=== PATIENT | male | born 1960 | race Caucasian/White ===

== ENCOUNTER 2016-06-22 17:10 | Emergency (ER) | payer MEDICAID ==
[~2016-06-22] VITALS: Ht 177.8 cm; Wt 75.5 kg
[2016-06-22 17:41] VITALS: Ht 177.8 cm; Wt 75.5 kg
[2016-06-22] MEDS ORDERED: METHYLPREDNISOLONE 125 MG INJ IM ONE (18:30)
[2016-06-22] MEDS ORDERED: DIPHENHYDRAMINE 25 MG CAP PO ONE (18:30)
[2016-06-22] MEDS ORDERED: PRED20TA PO (18:33)
[2016-06-22] MEDS ORDERED: BEN50 PO (18:33)
[2016-06-22 19:13] VITALS: BP 127/71; PULSE 65; RESP 19; TEMP 97
--- NOTE | 2016-06-23 17:48 | ERD ---
ER Documentation Chief Complaint Date/Time DATE: 06/23/16 TIME: 17:45 Chief Complaint GEN RASH TO BODY, STATES HE WAS IN THE [place] 2 DAYS AGO. HPI This is a 56-year-old homeless male that presents to the emergency department after he indicates he was walking on a trail in [facility] 48 hours prior to arrival wearing shorts. He indicates that shortly after he noticed multiple insect bites and since that time has been experiencing diffuse pruritus localized to the insect bites. He states had no fevers or shaking or chills. He denies any difficulty breathing and no swelling of his lips or tongue. Indicates given that he is homeless he does not have ability to obtain antihistamines presents to the emergency department to be further evaluated. He denies any spreading of the rash as it is localized to the insect bites on his bilateral lower extremities. ROS All systems reviewed and are negative except as per history of present illness. Medications Home Meds Active Scripts Diphenhydramine Hcl* (Benadryl*) 50 Mg Cap, 50 MG PO Q6H Y for ITCHING/RASH, # 30 CAP Prov:ALTA HERRERA 06/22/16 Prednisone* (Prednisone*) 20 Mg Tab, 60 MG PO DAILY for 5 Days, TAB Prov:ALTA HERRERA 06/22/16 Allergies Allergies: Coded Allergies: No Known Allergy (Unverified , 06/22/16) PMhx/Soc History of Surgery: Yes (left ankle sx 1995) Anesthesia Reaction: No Hx Neurological Disorder: No Hx Respiratory Disorders: No Hx Cardiac Disorders: No Hx Psychiatric Problems: Yes (bipolar) Hx Miscellaneous Medical Probl: No Hx Alcohol Use: No Hx Substance Use: Yes (marijauna) Hx Tobacco Use: No Physical Exam Vitals Vital Signs Date Time Temp Pulse Resp B/P Pulse Ox O2 Delivery O2 Flow Rate FiO2 06/22/16 19:13 97.0 65 19 127/71 99 Room Air 06/22/16 17:41 97.0 93 19 120/72 97 Physical Exam Constitutional:Well-developed. Well-nourished. HEENT:Normocephalic. Atraumatic.Pupils were equal round reactive to light. Moist mucous membranes.No tonsillar exudates. No angioedema. No macroglossia Neck: No nuchal rigidity. No lymphadenopathy. No posterior cervical spine tenderness or step-offs. Respiratory: Not using accessory muscles of respiration.Lungs were clear to auscultation bilaterally. No rhonchi. No rales. No wheezing. Cardiovascular: Regular rate regular rhythm.No murmurs. No rubs were appreciated.S1, S2 normal. Distal pulses are palpable 2+ bilaterally. GI: Abdomen was soft. Nontender. Non Distended. No pulsatile abdominal masses or bruits. No rebound. No guarding. Bowel sounds were present and normal. Muscle skeletal: Full range of motion of both the upper and lower extremities bilaterally.Normal muscle tone.No assymetrical calf tenderness or swelling. Skin: No petechia, no purpura. No lesions on the palms or the soles of the feet. No maculopapular rash. Diffuse well-circumscribed areas of erythremia with central area of inoculation site over the bilateral lower extremities with no surrounding tenderness fluctuance or induration. No urticaria. No rash involving the face abdomen or back NEURO: Patient was alert, awake, orientated x3.No facial droop. Gait observed and normal with no ataxia.Speech had regular rate and rhythm. No focal neurological deficits. Results 24 hrs Current Medications Medications (Trade) Dose Ordered Sig/Bubba Route PRN Reason Start Time Stop Time Status Last Admin Dose Admin Methylprednisolone Sodium Succinate (Solu-Medrol) 125 mg ONCE ONCE IM 06/22/16 18:30 06/22/16 18:31 DC 06/22/16 18:47 Diphenhydramine HCl (Benadryl) 25 mg ONCE ONCE PO 06/22/16 18:30 06/22/16 18:31 DC 06/22/16 18:47 Procedures/MDM This patient presented to the emergency department physical exam findings consistent of pruritus likely secondary to insect bites. The patient did not have any physical exam findings to suggest angioedema, urticaria, toxic shock syndrome, Wang-Ras syndrome or poison skye. There is no evidence of overlying cellulitis. The patient received IM Solu-Medrol and was given Benadryl in the emergency department. The patient did state he is a friend that would be able to help him fill antihistamine prescriptions therefore he was given a prescription of both Benadryl and low-dose steroids for the next 5 days. The patient was discharged home in fair condition. They were instructed to return to the emergency department at any time if there was any worsening of their condition. The patient stated they would follow up with their PCP in the next 24-48 hours to initiate a suitable medication regimen under the care of their PCP as well as to allow their PCP to monitor any drug reactions. The patient was discharged home with prescriptions after they gave informed consent to the new medication. They were also fully informed by myself on the adverse effects and adverse drug interactions in order to provide adequate safeguards to prevent possible adverse reactions to medications. Departure Diagnosis: Primary Impression: Local reaction to insect sting Encounter type: initial encounter Injury intent: accidental or unintentional Qualified Code: T63.481A - Local reaction to insect sting, accidental or unintentional, initial encounter Condition: Fair Patient Instructions: Allergic Reaction, Insect (General) ALTA HERRERA Jun 23, 2016 17:48
== END 2016-06-22 19:13 | disposition home or self-care (01) ==
LOC: FTE 17:10
DX: T63.481A Toxic effect of venom of other arthropod, accidental (unintentional), initial encounter (principal)
CPT/HCPCS: J2930; Z7610; 96372

== ENCOUNTER 2016-11-09 20:19 | Emergency (ER) | payer MEDICAID ==
[~2016-11-09] VITALS: Ht 175.3 cm; Wt 75.0 kg
[~2016-11-09 20:19] MED LIST: BEN50 PO; PRED20TA PO
[2016-11-09 20:56] VITALS: Ht 175.3 cm; Wt 75.0 kg
[2016-11-09] MEDS ORDERED: morphine 4 MG/ML VIAL IV STA (22:06)
[2016-11-09] MEDS ORDERED: ONDANSETRON 4 MG INJ IV STA (22:06)
[2016-11-09] MEDS ORDERED: SOD CHLORIDE 0.9% 1,000 ML IV STA (22:06)
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
[2016-11-09 22:49] LABS: ALBUMIN 4.1 g/dl (3.3-4.9); ALBUMIN/GLOBULIN RATIO 1.32; BILIRUBIN,INDIRECT 0.9 mg/dl (0-1.1); BILIRUBIN,TOTAL 0.9 mg/dl (0.2-1.3); CALCIUM 9.3 mg/dl (8.4-10.2); CREATININE 1.09 mg/dl (0.61-1.24); POTASSIUM 4.1 mmol/L (3.5-5.1); TOTAL PROTEIN 7.2 g/dl (6.1-8.1)
--- NOTE | 2016-11-09 23:21 | RADRPT ---
PROCEDURE: US Scrotum. CLINICAL INDICATION: Scrotal injury. TECHNIQUE: Multiple sonographic images of the scrotal region were obtained utilizing a linear arra y transducer with grayscale and color-flow and a Doppler imaging. The images were reviewed on a high -resolution PACS workstation. COMPARISON: No prior studies are available for comparison. FINDINGS: Right hemiscrotum: Testis: Normal in size, morphology and without mass. There is normal blood flow. Testicular size is estimated at 4.1 x 2.5 x 1.9 centimeters. Epididymis: No abnormalities are identified, normal size and blood flow is demonstrated. Hydrocele: None identified. Varicocele: None identified. Scrotal skin: Not thickened. Left hemiscrotum: Testis: Normal in size, morphology and without mass. There is normal blood flow. Testicular size i s estimated at 4 x 2.4 x 1.7 centimeters. Epididymis: Incidental tiny 2 mm cyst. Normal blood flow. Hydrocele: None identified. Varicocele: None identified. Scrotal skin: Not thickened. RPTAT:HJJR IMPRESSION: Incidental tiny left epididymal cyst, otherwise unremarkable scrotal ultrasound. Physician Wale Date Time Electronically viewed and signed by Physician Wale on 11/09/2016 23:21 /
[2016-11-09] MEDS ORDERED: SOD CHLORIDE 0.9% 100 ML ONE (23:52)
[2016-11-09] MEDS ORDERED: IOHEXOL 300MG/ML 150 ML BTL ONE (23:52)
--- NOTE | 2016-11-10 00:35 | RADRPT ---
PROCEDURE: CT abdomen and pelvis with contrast. CLINICAL INDICATION: Abdominal pain. TECHNIQUE: CT scan of the abdomen and pelvis with contrast was performed. Coronal and sagittal im ages were also reformatted. 100 cc Omnipaque-300 intravenous contrast was administered without comp lication. One or more of the following dose reduction techniques were used: Automated exposure contr ol, adjustment of the mA and/or kV according to patient size, use of iterative reconstruction techni que. Total exam CTDIvol = 8.65 mGy and DLP = 517.80 mGy-cm. COMPARISON: None. FINDINGS: Visualized lower thorax: Linear scarring in the lateral segment right middle lobe is present with mi ld bibasilar subsegmental atelectasis. There is no evidence for pleural effusion. Liver, gallbladder, pancreas and spleen: Normal hepatic contour, attenuation in size. In the cente r of the right hepatic lobe is a peripherally lobulated centrally hypodense lesion and has some area s of peripheral enhancement the finding measuring 2.1 x 1.5 cm in width attenuation centrally of 50 HU, findings possibly an hemangioma (series 3 image 39). A second to similar lesion in the inferior right hepatic lobe is approximately 1.6 x 1.2 cm (series 3 image 50). There is no evidence of duct al dilatation. The gallbladder is unremarkable. No common bile duct dilatation is evident. The pa ncreas is normal. The spleen is normal, not enlarged. Adrenal glands and genitourinary system: The adrenal glands are normal bilaterally. The kidneys ar e normal in size, contour and attenuation with no evidence for masses, calculi or hydronephrosis. Sy mmetric enhancement of the kidneys is present without evidence of pyelonephritis . The ureters are unremarkable. The urinary bladder shows no abnormality. The prostate gland is normal in size. The scrotum shows no evidence of abnormality. Gastrointestinal system: The stomach, small bowel and large intestine are normal in caliber. There is no evidence of obstruction, ileus or inflammation. There is no evidence of appendicitis. A mode rate amount of fecal debris is present within the colon raising concern for constipation. Peritoneum, retroperitoneum, vessels and lymph nodes: The abdominal aorta is normal in caliber. Th ere is trace aortic atherosclerotic calcification. Inferior vena cava is normal in caliber. There is no evidence for adenopathy. The peritoneal cavity is normal with no evidence for ascites. No pne umoperitoneum is present Osseous structures and musculoskeletal system: There is no evidence for acute osseous abnormality o r muscular pathology. Moderate to severe multilevel spondylosis, facet arthropathy and vacuum disk phenomenon throughout the lumbar spine is present. Edematous changes in the subcutaneous fat of the right inguinal region are nonspecific, possibly post traumatic or inflammatory. There is no eviden ce of inguinal hernia or hematoma. RPTAT:HJJR IMPRESSION: 1. Nonspecific edematous change in the right inguinal region possibly post traumatic or inflammator y, cellulitis cannot be excluded in the proper clinical setting. No evidence of abscess or hematoma . 2. Hypodensities within the right hepatic lobe probably reflect incidental hemangiomata but follow- up evaluation is recommended based upon the attenuation and sizes measuring over 1 cm. Consider a n on emergent follow-up outpatient three-phase liver CT examination. 3. Constipation pattern. 4. Extensive vacuum disk phenomenon and degenerative changes of the thoracolumbar spine. 5. Minimal atherosclerotic calcification of the abdominal aorta. Physician Wale Date Time Electronically viewed and signed by Physician Wale on 11/10/2016 00:35 /
[2016-11-10 00:51] LABS: ADD UMIC NO; UR ASCORBIC ACID NEGATIVE (NEGATIVE); UR BILIRUBIN (Dip) NEGATIVE (NEGATIVE); UR BLOOD (Dip) NEGATIVE (NEGATIVE); UR CLARITY CLEAR (CLEAR); UR COLOR YELLOW (YELLOW); UR GLUCOSE (Dip) NEGATIVE (NEGATIVE); UR KETONES (Dip) TRACE mg/dL (NEGATIVE); UR LEUKOCYTE ESTERASE (Dip) NEGATIVE Leu/ul (NEGATIVE); UR NITRITE (Dip) NEGATIVE (NEGATIVE); UR SPECIFIC GRAVITY (Dip) 1.028 (1.003-1.030); UR TOTAL PROTEIN (Dip) NEGATIVE (NEGATIVE); UR UROBILINOGEN (Dip) 1+ mg/dL (NEGATIVE)
[2016-11-10] MEDS ORDERED: HYDR-906 PO (01:08)
[2016-11-10] MEDS ORDERED: IBUP-1542 PO (01:08)
[2016-11-10 01:31] VITALS: BP 142/71; PULSE 70; RESP 20; TEMP 97
== END 2016-11-10 01:32 | disposition home or self-care (01) ==
LOC: FTE 20:19
DX: S30.1XXA Contusion of abdominal wall, initial encounter (principal); F17.210 Nicotine dependence, cigarettes, uncomplicated; V18.4XXA Pedal cycle driver injured in noncollision transport accident in traffic accident, initial encounter
CPT/HCPCS: 36415; 74177; 76870; 80053; 81003; 96374; 96375; J2270; J2405; J7030; Q9967; Z7502; Z7610

== ENCOUNTER 2016-12-25 09:06 | Emergency (ER) | payer MEDICAID ==
[~2016-12-25] VITALS: Wt 74.5 kg
[~2016-12-25 09:06] MED LIST changes: +HYDR-906 PO; +IBUP-1542 PO
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
[2016-12-25] MEDS ORDERED: KETOROLAC 60 MG INJ IM STA (11:00)
== END 2016-12-25 12:20 | disposition left against medical advice (07) ==
LOC: FTE 09:06
DX: S00.12XA Contusion of left eyelid and periocular area, initial encounter (principal); V27.4XXA Motorcycle driver injured in collision with fixed or stationary object in traffic accident, initial encounter; Z87.891 Personal history of nicotine dependence
CPT/HCPCS: 96372; J1885; Z7502

== ENCOUNTER 2017-05-21 17:02 | Emergency (ER) | END 2017-05-21 19:32 | disposition home or self-care (01) ==

== ENCOUNTER 2017-07-20 10:08 | Emergency (ER) | END 2017-07-20 14:26 | disposition home or self-care (01) ==

== ENCOUNTER 2017-10-10 15:31 | Emergency (ER) | END 2017-10-10 16:38 | disposition home or self-care (01) ==

== ENCOUNTER 2017-11-18 16:56 | Observation (INO) | END 2017-11-19 15:49 | disposition home or self-care (01) ==

== ENCOUNTER 2018-05-16 00:47 | Observation (INO) | payer OTHER ==
[~2018-05-16] VITALS: Ht 177.8 cm; Wt 73.6 kg
[2018-05-16] MEDS ORDERED: morphine 4 MG/ML VIAL IV STA (02:12)
[2018-05-16] MEDS ORDERED: ONDANSETRON 4 MG INJ IV STA (02:12)
[2018-05-16] MEDS ORDERED: ASPIRIN 325 MG TAB PO STA (02:12)
--- NOTE | 2018-05-16 05:44 | ERD ---
ER Documentation Chief Complaint Chief Complaint arm numbness,SOB,ante CPs x unknown duration of time HPI This is a 58-year-old male comes in with chest pain shortness of breath and arm numbness for the past 6 hours. Pain is mild to moderate sensorineural exam no exacerbating relieving factors. No fevers or chills. No other current issues. ROS All systems reviewed and are negative except as per history of present illness. Medications Home Meds No Active Prescriptions or Reported Meds Allergies Allergies: Coded Allergies: No Known Allergy (Unverified , 11/18/17) PMhx/Soc History of Surgery: Yes (apendicitis, ankle sx) Anesthesia Reaction: No Hx Neurological Disorder: No Hx Respiratory Disorders: No Hx Cardiac Disorders: No Hx Psychiatric Problems: No Hx Miscellaneous Medical Probl: No Hx Alcohol Use: No Hx Substance Use: Yes (marijuana daily) Hx Tobacco Use: No Smoking Status: Never smoker Physical Exam Vitals Vital Signs Date Temp Pulse Resp B/P (MAP) Pulse Ox O2 O2 Flow FiO2 Time Delivery Rate 05/16/18 73 16 134/83 100 Room Air 03:59 (100) 05/16/18 97.3 84 20 139/79 100 00:57 (99) Physical Exam Const: No acute distress Head: Atraumatic Eyes: Normal Conjunctiva ENT: Normal External Ears, Nose and Mouth. Neck: Full range of motion. No meningismus. Resp: Clear to auscultation bilaterally Cardio: Regular rate and rhythm, no murmurs Abd: Soft, non tender, non distended. Normal bowel sounds Skin: No petechiae or rashes Back: No midline or flank tenderness Ext: No cyanosis, or edema Neur: Awake and alert Psych: Normal Mood and Affect Result Diagram: 05/16/18 0231 05/16/18 0231 Results 24 hrs Laboratory Tests Test 05/16/18 02:31 White Blood Count 7.7 10^3/ul Red Blood Count 5.36 10^6/ul Hemoglobin 14.6 g/dl Hematocrit 46.6 % Mean Corpuscular Volume 86.9 fl Mean Corpuscular Hemoglobin 27.2 pg Mean Corpuscular Hemoglobin Concent 31.3 g/dl Red Cell Distribution Width 13.5 % Platelet Count 234 10^3/UL Mean Platelet Volume 9.6 fl Immature Granulocytes % 0.400 % Neutrophils % 82.0 % Lymphocytes % 6.6 % Monocytes % 4.9 % Eosinophils % 5.7 % Basophils % 0.4 % Nucleated Red Blood Cells % 0.0 /100WBC Immature Granulocytes # 0.030 10^3/ul Neutrophils # 6.3 10^3/ul Lymphocytes # 0.5 10^3/ul Monocytes # 0.4 10^3/ul Eosinophils # 0.4 10^3/ul Basophils # 0.0 10^3/ul Nucleated Red Blood Cells # 0.0 10^3/ul Sodium Level 141 mmol/L Potassium Level 3.6 mmol/L Chloride Level 102 mmol/L Carbon Dioxide Level 28 mmol/L Anion Gap 11 Blood Urea Nitrogen 18 mg/dl Creatinine 1.03 mg/dl Est Glomerular Filtrat Rate mL/min > 60 mL/min Glucose Level 119 mg/dl Calcium Level 9.5 mg/dl Total Bilirubin 1.3 mg/dl Direct Bilirubin 0.00 mg/dl Indirect Bilirubin 1.3 mg/dl Aspartate Amino Transf (AST/SGOT) 30 IU/L Alanine Aminotransferase (ALT/SGPT) 32 IU/L Alkaline Phosphatase 88 IU/L Troponin I < 0.012 ng/ml B-Type Natriuretic Peptide 273 PG/ML Total Protein 7.2 g/dl Albumin 4.3 g/dl Globulin 2.90 g/dl Albumin/Globulin Ratio 1.48 Current Medications Medications Dose Sig/Bubba Start Time Status Last (Trade) Ordered Route PRN Stop Time Admin Dose Reason Admin Aspirin 325 mg ONCE STAT 05/16/18 DC 05/16/18 (Aspirin) PO 02:12 02:29 05/16/18 02:13 Morphine 4 mg ONCE STAT 05/16/18 DC 05/16/18 Sulfate IV 02:12 02:29 (morphine) 05/16/18 02:13 Ondansetron 4 mg ONCE STAT 05/16/18 DC 05/16/18 HCl (Zofran IV 02:12 02:29 Inj) 05/16/18 02:13 Procedures/MDM EKG: Rate/Rhythm: [Normal Sinus Rhythm] QRS, ST, T-waves: [No changes consistent w/ acute ischemia] Impression: [No evidence of ischemia or arrhythmia] Chest X-ray 1V Interpreted by me: Soft Tissue: No acute abnormalities Bones: No acute abnormalities Mediastinum/Cardiac Silhouette/Lungs: [No acute abnormalities] . Medical decision making: This is a 58-year-old male comes in with chest pain. He received to continue her chest. He was given aspirin and morphine. At this point I feel the patient has been admitted to be ruled out with serial troponins. Patient will be admitted to hospitalist group. Departure Diagnosis: Primary Impression: Chest pain Chest pain type: unspecified Qualified Codes: R07.9 - Chest pain, unspecified Condition: Serious MIGUEL ARIAS May 16, 2018 05:44
--- NOTE | 2018-05-16 06:54 | HP ---
Date/Time of Note Date/Time of Note DATE: 05/16/18 TIME: 06:52 Assessment/Plan VTE Prophylaxis Pharmacological prophylaxis: heparin Lines/Catheters IV Catheter Type (from Nrsg): Saline Lock Assessment/Plan Assessment/Plan 58-year-old male with no significant past medical history here with chest pain. Need to rule out ACS PLAN Admit to telemetry unit First troponin negative, EKG without ST-T wave abnormalities Trend troponin Supplemental oxygen, aspirin. As needed nitro and morphine 2D echo and cardiology consult Check A1c, fasting lipid and TSH Result Diagram: 05/16/18 0231 05/16/18 0231 Results 24hrs Laboratory Tests Test 05/16/18 02:31 White Blood Count 7.7 Red Blood Count 5.36 Hemoglobin 14.6 Hematocrit 46.6 Mean Corpuscular Volume 86.9 Mean Corpuscular Hemoglobin 27.2 L Mean Corpuscular Hemoglobin Concent 31.3 L Red Cell Distribution Width 13.5 Platelet Count 234 # Mean Platelet Volume 9.6 Immature Granulocytes % 0.400 Neutrophils % 82.0 H Lymphocytes % 6.6 L Monocytes % 4.9 Eosinophils % 5.7 Basophils % 0.4 Nucleated Red Blood Cells % 0.0 Immature Granulocytes # 0.030 Neutrophils # 6.3 Lymphocytes # 0.5 L Monocytes # 0.4 Eosinophils # 0.4 Basophils # 0.0 Nucleated Red Blood Cells # 0.0 Sodium Level 141 Potassium Level 3.6 Chloride Level 102 Carbon Dioxide Level 28 Anion Gap 11 Blood Urea Nitrogen 18 Creatinine 1.03 Est Glomerular Filtrat Rate mL/min > 60 Glucose Level 119 Calcium Level 9.5 Total Bilirubin 1.3 Direct Bilirubin 0.00 Indirect Bilirubin 1.3 H Aspartate Amino Transf (AST/SGOT) 30 Alanine Aminotransferase (ALT/SGPT) 32 Alkaline Phosphatase 88 Troponin I < 0.012 B-Type Natriuretic Peptide 273 H Total Protein 7.2 Albumin 4.3 Globulin 2.90 Albumin/Globulin Ratio 1.48 HPI/ROS Admit Date/Time Admit Date/Time Hx of Present Illness This is a 58-year-old male with no significant past medical history presents the ER complaining of chest pain and shortness of breath. Symptoms has been going on for over 10 days Chest pain is described as sharp and tightness with associated left arm pain and numbness. Denied nausea/vomiting, diaphoresis. He said he was seen at an outpatient facility over a week ago for chest pain. At that time he said he was told to use "a spray"for chest pain, however he refused. When presented to ER, vitals were stable. First troponin negative. EKG without ST-T wave abnormalities. PMH/Family/Social Past Medical History Medical History: no pertinent history Coded Allergies: No Known Allergy (Unverified , 11/18/17) Past Surgical History Past Surgical Hx: other (See HPI) Family History Significant Family History: no pertinent family hx Social History Alcohol Use: occasionally Smoking Status: Never smoker Drug Use: none Exam/Review of Systems Vital Signs Vitals Vital Signs Date Temp Pulse Resp B/P (MAP) Pulse Ox O2 O2 Flow FiO2 Time Delivery Rate 05/16/18 70 16 120/88 100 Room Air 06:20 (99) 05/16/18 97.3 00:57 Exam Constitutional: alert, oriented, well developed Head: normocephalic, atraumatic Eyes: EOMI, PERRL Respiratory: clear to auscultation, normal air movement Cardiovascular: regular rate and rhythm, nl pulses Gastrointestinal: soft Extremities: normal pulses MIGUEL MARCELINO MD May 16, 2018 06:54
[2018-05-16] MEDS ORDERED: NACL 0.9% 3 ML SYG IV SCH (07:00)
[2018-05-16] MEDS ORDERED: NITROGLYCERIN (SL) 0.4 MG TAB SL PRN (07:00)
[2018-05-16] MEDS ORDERED: ONDANSETRON 4 MG INJ IV PRN (07:00)
[2018-05-16] MEDS: ASPIRIN 81 MG TAB PO SCH (09:42)
[2018-05-16] MEDS: ACETAMINOPHEN 325 MG TAB PO PRN (09:42)
[2018-05-16] MEDS: HEPARIN 5,000 UNIT/1 ML VIAL SC SCH ×2 (09:44→21:32)
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
[2018-05-16] MEDS ORDERED: SOD CHLORIDE 0.9% 500 ML IV ONE (14:00)
[2018-05-16 16:04] VITALS: Ht 177.8 cm; Wt 73.6 kg
--- NOTE | 2018-05-16 16:06 | RADRPT ---
Echocardiogram Report Patient Name: NELY REEDPatient ID: [id number] : 1960 (58y 1m)Study Date: 05/16/2018 10:53:40 AM Gender: MAccession #: [id number] Tech: Jai Mcclure [facility] [place] Location: -6 Ref.Physician: MIGUEL MARCELINO Height(Cm): BSA: Weight(Kg): Quality: AdequateAccount #: Procedures: Echocardiographic Report: Transthoracic echocardiogram with complete 2D, M-Mode, and doppler examination. Indications: Chest Pain. Measurements: 2D/M Mode Doppler Measurement Value Normal Range Measurement Value Normal Range LVIDd 2D 5.3 [ 4.2 - 5.8 ] cm AV Peak Adan 1.4 [ 100.0 - 170.0 ] cm/sec LVIDs 2D 3.5 [ 2.5 - 4.0 ] cm AV Peak PG 8.0 [ 2.0 - 9.0 ] mmHg LVPWd 2D 0.9 [ 0.6 - 1.0 ] cm LVOT Peak Adan 0.9 [ 70.0 - 110.0 ] cm/sec IVSd 2D 0.9 [ 0.6 - 1.0 ] cm LVOT Peak PG 3.0 [ 2.0 - 6.0 ] mmHg AoR Diam 2D 3.4 [ 2.6 - 3.4 ] cm MV E Peak Adan 0.7 [ 60.0 - 130.0 ] cm/sec EDV 2D 135.0 [ 62.0 - 150.0 ] ml MV A Peak Adan 0.8 [ 100.0 - 120.0 ] cm/sec ESV 2D 51.2 [ 21.0 - 61.0 ] ml MV E/A 0.9 [ 0.8 - 1.5 ] ratio EF 2D 62.1 [ 52.0 - 72.0 ] percent MV Decel Time 173 [ 104 - 258 ] msec LA Dimen 2D 3.3 [ 3.0 - 4.0 ] cm Lat E` Adan 0.1 [ 10.0 - 15.0 ] cm/sec Lateral E/E` 5.2 [ 1.0 - 2.0 ] ratio MV E/A 0.9 [ 0.8 - 1.5 ] ratio TR Peak Adan 3.3 [ 100.0 - 280.0 ] cm/sec TR Peak PG 44.0 mmHg RVSP 54.0 [ 10.0 - 36.0 ] mmHg Findings: Left Ventricle: Lower limits of normal systolic function. Normal left ventricular cavity size. Normal left ventricular wall thickness. Ejection fraction is visually estimated at 50 %. Tissue Doppler/Mitral Doppler indices are consistent with pseudonormalization with mildly elevated left atrial pressure (Stage II diastolic dysfunction). Right Ventricle: Normal right ventricular systolic function. Mild enlargement of right ventricle. Left Atrium: The left atrium is normal in size. Right Atrium: There is mild enlargement of right atrium. Mitral Valve: Mild mitral leaflet calcification. Mild mitral annular calcification. Trace mitral regurgitation. Aortic Valve: No significant aortic stenosis or insufficiency. Aortic cusps appear mildly calcified. Tricuspid Valve: Normal appearance of the tricuspid valve. Estimated peak PA systolic pressure 54 mmHg. There is mild tricuspid regurgitation. Pericardium: Normal pericardium with no significant pericardial effusion. Aorta: Normal aortic root. IVC: Normal size and normal respiratory collapse consistent with normal right atrial pressure. Conclusions: Lower limits of normal systolic function. Normal left ventricular cavity size. Normal left ventricular wall thickness. Ejection fraction is visually estimated at 50 %. Tissue Doppler/Mitral Doppler indices are consistent with pseudonormalization with mildly elevated left atrial pressure (Stage II diastolic dysfunction). There is mild enlargement of right atrium. Mild mitral leaflet calcification. Mild mitral annular calcification. Trace mitral regurgitation. No significant aortic stenosis or insufficiency. Aortic cusps appear mildly calcified. Normal appearance of the tricuspid valve. Estimated peak PA systolic pressure 54 mmHg. There is mild tricuspid regurgitation. Electronically Signed By: Bebeto Carroll 2018-05-16 16:05:46 PDT
[2018-05-16 16:09] VITALS: PULSE 73
[2018-05-16 19:34] VITALS: BP 117/63; PULSE 77; RESP 18
[2018-05-16 20:00] VITALS: PULSE 77
[2018-05-16] MEDS ORDERED: ZOLPIDEM 5 MG TAB PO ONE (21:30)
[2018-05-17] VITALS (7 sets, daily range): BP systolic 112–128; BP diastolic 65–75; PULSE 64–96; RESP 16–18
[2018-05-17] MEDS: ASPIRIN 81 MG TAB PO SCH (10:11)
[2018-05-17] MEDS: HEPARIN 5,000 UNIT/1 ML VIAL SC SCH (10:16)
[2018-05-17] MEDS: ACETAMINOPHEN 325 MG TAB PO PRN (10:18)
--- NOTE | 2018-05-17 12:03 | PDOCDIS ---
Discharge Instructions CONDITION [id number] Patient Condition: [id number] Stable HOME CARE INSTRUCTIONS: [id number] Diet Instructions: [id number] Regular FOLLOW UP/APPOINTMENTS Follow-up Plan Follow-up with primary care physician in 1 week. MARA PRIETO NP May 17, 2018 12:03
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
== END 2018-05-17 12:40 | disposition home or self-care (01) ==
LOC: E/R 00:47 → 6WM 04:17
PROVIDERS: ADMIT Internal Medicine; ATTEND Internal Medicine
DX: R07.9 Chest pain, unspecified (principal); I27.20 Pulmonary hypertension, unspecified
CPT/HCPCS: 36415; 71045; 80053; 80061; 82550; 82553; 83036; 83735; 83880; 84443; 84484; 85025; 93005; 93306; 96374; 96375; J1644; J2270; J2405; J7040; Z7500; Z7502; Z7610; G0378

== ENCOUNTER 2018-08-27 07:30 | Emergency (ER) | payer OTHER ==
[~2018-08-27] VITALS: Ht 177.8 cm; Wt 75.0 kg
[2018-08-27 07:49] VITALS: Ht 177.8 cm; Wt 75.0 kg
[2018-08-27] MEDS ORDERED: morphine 10 MG INJ IV ONE (08:00)
[2018-08-27] MEDS ORDERED: morphine 4 MG/ML VIAL IV STA (08:22)
[2018-08-27] MEDS ORDERED: HYDR-4011 PO (08:28)
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
[2018-08-27] MEDS ORDERED: BACITRACIN 0.9 GM OINT TOP ONE (09:00)
[2018-08-27 10:00] VITALS: BP 149/87; PULSE 75; RESP 16
== END 2018-08-27 10:18 | disposition home or self-care (01) ==
LOC: E/R 07:30
DX: S52.331A Displaced oblique fracture of shaft of right radius, initial encounter for closed fracture (principal); S01.21XA Laceration without foreign body of nose, initial encounter; S89.92XA Unspecified injury of left lower leg, initial encounter; V03.10XA Pedestrian on foot injured in collision with car, pick-up truck or van in traffic accident, initial encounter
CPT/HCPCS: 12011; 29105; 73110; 73562; 96374; 96376; J2270; Z7502

== ENCOUNTER 2018-10-12 14:01 | Observation (INO) | payer OTHER ==
[~2018-10-12] VITALS: Ht 177.8 cm; Wt 72.4 kg
[2018-10-12] VITALS (18 sets, daily range): BP systolic 88–106; BP diastolic 48–61; PULSE 62–77; RESP 12–26; Ht 177.8 cm; Wt 72.4 kg
[~2018-10-12 14:01] MED LIST changes: +ACET500C5 PO; -BEN50 PO; +HYDR-4011 PO; -HYDR-906 PO; -PRED20TA PO
--- NOTE | 2018-10-12 16:15 | HPN ---
Date/Time of Note Date/Time of Note DATE: 10/12/18 TIME: 16:15 Interval H&P Admission Note Pt. seen H&P reviewed: No system changes JANET GONSALEZ Oct 12, 2018 16:15
--- NOTE | 2018-10-12 17:05 | PREAC ---
Date/Time of Note Date/Time of Note DATE: 10/12/18 TIME: 17:04 Anesthesia Eval and Record Evaluation Time Pre-Procedure Interview DATE: 10/12/18 TIME: 17:04 Age 58 Sex male NPO: 8 hrs Preoperative diagnosis Right Distal Radius Fracture Planned procedure Right Distal Radius ORIF Past Medical History Past Medical History: None Surgery & Anesthesia Issues No known issue Meds Anticoagulation: No Beta Eusebia within 24 hr: No Reason Beta Eusebia not given: Pt. not on B-Eusebia Active Scripts Hydrocodone/Acetaminophen ([place] 5-325 Tablet) 1 Each Tablet, 1 TAB PO Q6H PRN for PAIN, #7 TAB Prov:GHAZALA AUGUST 08/27/18 Meds reviewed: Yes Allergies Coded Allergies: No Known Allergy (Unverified , 05/16/18) Allergies Reviewed: Yes Labs/Studies Labs Reviewed: Reviewed by anesthesiologist test: N/A Studies: ECG (n/a), CXR (n/a) Pre-procedure Exam Last vitals Vital Signs Date Temp Pulse Resp B/P (MAP) Pulse Ox O2 O2 Flow FiO2 Time Delivery Rate 10/12/18 98.5 72 16 89/61 (70) 97 Room Air 15:46 Airway: Adequate mouth opening, Adequate thyromental dist Mallampati: Mallampati II Teeth: Normal Lung: Normal Heart: Normal ASA Physical Status ASA physical status: 1 Emergency: None Planned Anesthetic General/MAC: LMA Nerve block: Brachial plexus (right) Planned Pain Management Single shot nerve block, Parenteral pain med Pre-operative Attestations Prior to commencing anesthesia and surgery, the patient was re-evaluated, there was verification of: *The patient's identity *The results of appropriate recent lab work and preoperative vital signs *The above evaluation not changing prior to induction *Anesthetic plan, risk benefits, alternative and complications discussed with patient/family; questions answered; patient/family understands, accepts and wishes to proceed. ALEXANDER HUFFMAN MD Oct 12, 2018 17:05
[2018-10-12] MEDS ORDERED: ROCURONIUM 50 MG INJ ONE (17:07)
[2018-10-12] MEDS ORDERED: CEFAZOLIN 1 GM INJ ONE (17:07)
[2018-10-12] MEDS ORDERED: PROPOFOL 20 ML ONE (17:07)
[2018-10-12] MEDS ORDERED: FENTAnyl 50 MCG/ML VIAL ONE (17:07)
[2018-10-12] MEDS ORDERED: MIDAZOLAM 1 MG/ML 2 ML INJ ONE (17:07)
[2018-10-12] MEDS ORDERED: ROPIVACAINE 0.2% 20 ML VIAL ONE (17:07)
[2018-10-12] MEDS ORDERED: ONDANSETRON 4 MG INJ ONE (19:52)
[2018-10-12] MEDS ORDERED: METOCLOPRAMIDE 10 MG INJ ONE (19:52)
[2018-10-12] MEDS ORDERED: DEXAMETHASONE 4 MG/ML 5 ML INJ ONE (19:52)
[2018-10-12] MEDS ORDERED: KETOROLAC 30 MG INJ ONE (19:53)
--- NOTE | 2018-10-12 19:59 | OPPN ---
Date/Time of Note Date/Time of Note DATE: 10/12/18 TIME: 19:58 Operative Report Preoperative Diagnosis Right radial shaft fracture, DRUJ dislocation Postoperative Diagnosis Right radial shaft fracture, DRUJ dislocation Operation/Procedure Performed ORIF Right radial shaft fracture, DRUJ dislocation pinning Surgeon see signature line metal forger's assistant none Anesthesia: general Estimated blood loss: 0 - 10 ml's Transfusion Required none Specimen none Grafts/Implants none Complications none JANET GONSALEZ Oct 12, 2018 19:59
--- NOTE | 2018-10-12 20:07 | PAC ---
Date/Time of Note Date/Time of Note DATE: 10/12/18 TIME: 20:07 Post-Anesthesia Notes Post-Anesthesia Note Last documented vital signs Vital Signs Date Temp Pulse Resp B/P (MAP) Pulse Ox O2 O2 Flow FiO2 Time Delivery Rate 10/12/18 98.2 20:05 10/12/18 72 16 89/61 (70) 97 Room Air 15:46 Activity: WNL Respiratory function: WNL Cardiovascular function: WNL Mental status: Baseline Pain reasonably controlled: Yes Hydration appropriate: Yes Nausea/Vomiting absent: Yes ALEXANDER HUFFMAN MD Oct 12, 2018 20:07
[2018-10-13] MEDS ORDERED: SOD CHLORIDE 0.9% 500 ML IV ONE
[2018-10-13 01:47] VITALS: BP 100/59; PULSE 57; RESP 18
[2018-10-13] MEDS: HYDROCODONE/APAP (5/325) TAB PO PRN ×5 (04:50→23:12)
[2018-10-13] MEDS ORDERED: HYDROCODONE/APAP (5/325) TAB PO PRN (05:00)
[2018-10-13] MEDS ORDERED: ACETAMINOPHEN 500 MG TAB PO PRN ×2 (06:00)
[2018-10-13 07:44] VITALS: BP 104/69; PULSE 52; RESP 15
[2018-10-13 14:10] VITALS: BP 112/69; PULSE 60; RESP 17
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
[2018-10-13 19:52] VITALS: BP 127/74; PULSE 64; RESP 17
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
[2018-10-14] MEDS ORDERED: ONDANSETRON 4 MG INJ IV PRN (02:00)
[2018-10-14 02:51] VITALS: BP 130/77; PULSE 65; RESP 16
[2018-10-14 07:34] VITALS: BP 130/86; PULSE 74; RESP 18
--- NOTE | 2018-10-14 11:35 | PDOCDIS ---
Discharge Instructions CONDITION [id number] Patient Condition: [id number] Good HOME CARE INSTRUCTIONS: [id number] Diet Instructions: [id number] Regular ACTIVITY: [id number] Activity Restrictions: [id number] No Restrictions FOLLOW UP/APPOINTMENTS Follow-up Plan FOLLOW UP WITH YOUR PCP AND ORTHO SAL LEAL Oct 14, 2018 11:35
[2018-10-14] MEDS: HYDROCODONE/APAP (5/325) TAB PO PRN (11:54)
[2018-10-14 14:20] VITALS: BP 157/91; PULSE 59; RESP 16
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
== END 2018-10-14 14:50 | disposition home or self-care (01) ==
LOC: SDS 14:01 → 2NE 20:23
PROVIDERS: ADMIT Orthopaedic Surgery Hand Surgery; ATTEND Orthopaedic Surgery Hand Surgery
DX: S52.351A Displaced comminuted fracture of shaft of radius, right arm, initial encounter for closed fracture (principal); S63.011A Subluxation of distal radioulnar joint of right wrist, initial encounter; V04.90XA Pedestrian on foot injured in collision with heavy transport vehicle or bus, unspecified whether traffic or nontraffic accident, initial encounter
CPT/HCPCS: 25515; 25675; 73110; C1713; J0690; J1100; J1885; J2250; J2405; J2765; J2795; J3010; J7040; Z7500; Z7512; Z7610; G0378

== ENCOUNTER 2018-10-19 14:54 | Emergency (ER) | payer OTHER ==
[~2018-10-19] VITALS: Ht 165.1 cm; Wt 71.5 kg
[2018-10-19 14:58] VITALS: Ht 165.1 cm; Wt 71.5 kg
[2018-10-19] MEDS ORDERED: KETOROLAC 15 MG INJ IV STA (15:46)
[2018-10-19] MEDS ORDERED: SOD CHLORIDE 0.9% 1,000 ML IV STA (15:46)
[2018-10-19 17:22] VITALS: BP 134/87; PULSE 80; RESP 16
== END 2018-10-19 17:46 | disposition home or self-care (01) ==
LOC: E/R 14:54
DX: K62.5 Hemorrhage of anus and rectum (principal); F17.210 Nicotine dependence, cigarettes, uncomplicated; R40.2142 Coma scale, eyes open, spontaneous, at arrival to emergency department; R40.2252 Coma scale, best verbal response, oriented, at arrival to emergency department; R40.2362 Coma scale, best motor response, obeys commands, at arrival to emergency department
CPT/HCPCS: 36415; 80053; 83690; 85025; 86140; 96361; 96374; J1885; J7030; Z7502